=== PATIENT | female | born 1975 | race African-American/Black ===

== ENCOUNTER 2021-06-10 12:27 | Emergency (ER) | payer OTHER, SELFPAY ==
--- NOTE | ~2021-06-10 | US_ITS ---
US pelvic complete DATE: 06/10/2021 18:23 INDICATION: Dysfunctional uterine bleeding TECHNIQUE: Real-time imaging via transabdominal approach only COMPARISON: July 08, 2017 pelvic ultrasound with transvaginal views FINDINGS: The uterus measures 8.4 cm height, 5 cm AP and 6 cm transverse dimension. The central endom etrial echo measures 9 mm AP dimension. Right ovary 2.6 x 1.4 x 1.8 cm with vascular flow. Left ovary 4.1 x 2.4 x 3.3 cm with vascular flow. Left ovarian 2 x 2.7 cm cyst. No free pelvic fluid collection. IMPRESSION: 2 x 2.7 cm left ovarian cyst Reviewed, dictated and finalized at [facility] Reviewed, dictated and finalized at [facility] [employer]
[2021-06-10 12:45] VITALS: BP 129/88; PULSE 98; RESP 16; TEMP 37.2; O2SAT 100
[2021-06-10 15:01] VITALS: BP 115/74; PULSE 89; RESP 16; O2SAT 97
[2021-06-10 15:19] LABS: Basophils Percent Auto 0.4 % (0.2-1.2); Eosinophils Absolute Auto 0.1 K/mm3 (0-0.3); Eosinophils Percent Auto 1.9 % (0-4.4); Hematocrit 37.2 % (37.0-47.0); Hemoglobin 12.4 g/dL (12.0-15.0); Immature Granulocyte Absolute 0.02 K/mm3 (0.00-0.031); Immature Granulocyte Percent A 0.3 % (0-0.5); Lymphocytes Absolute Auto 2.58 K/mm3 (0.9-3.2); Lymphocytes Percent Auto 34.8 % (18.3-44.2); Mean Corpuscular HGB Conc 33.3 g/dl (32-36); Mean Corpuscular Hemoglobin 31.8 pg (26-34); Mean Corpuscular Volume 95.4 fl (80-100); Mean Platelet Volume 12.3 fl (7.4-10.4); Monocytes Absolute Auto 0.5 K/mm3 (0.1-0.6); Monocytes Percent Auto 6.7 % (2.6-8.5); Neutrophils Absolute Auto 4.2 K/mm3 (1.3-6.7); Neutrophils Percent Auto 55.9 % (45.5-73.1); Platelet Count Result 182 k/mm3 (150-375); Red Cell Distribution Width 14.4 % (11.5-14.5); White Blood Count 7.4 K/mm3 (4.5-10.0)
[2021-06-10 16:10] LABS: Add Urine Microscopic? YES; Appearance Urine Clear (Clear); Bilirubin Urine Negative (Negative); Blood Urine 3+ (Negative); Color Urine Yellow (Yellow); Glucose Urine UA Negative (Negative); Ketones Urine Negative (Negative); Leukocyte Esterase Ur Negative LEU/UL (Negative); Mucus Urine Rare /lpf; Nitrate Urine Negative (Negative); Protein Urine Negative (Negative); RBC Urine 0-2 /hpf (0-2); Specific Grav Ur 1.018 (1.001-1.035); Squamous Epithelial Cell Urine Moderate /hpf (Few); Urobilinogen Urine Negative mg/dL (<2.0); WBC Urine 0-3 /hpf
[2021-06-10] MEDS: KETOROLAC 30 MG/ML VIAL (*BKC) IV PUSH (16:40)
[2021-06-10] MEDS: SODIUM CHLORIDE 0.9% IV 1,000 ML 250 ML IV CONT (16:41)
[2021-06-10 18:57] VITALS: BP 107/76; PULSE 67; RESP 18; O2SAT 97
[2021-06-10 19:25] VITALS: PULSE 72; RESP 16; O2SAT 100
[2021-06-10 19:28] VITALS: BP 117/74
--- NOTE | 2021-06-10 19:44 | ED.FEMALEGU ---
HPI - Female Genitourinary General Chief complaint: Vaginal Bleeding Stated complaint: HEAVY VAG BLEED Time Seen by Provider: 06/10/21 16:17 Source: patient and family Mode of arrival: ambulatory Limitations: no limitations History of Present Illness HPI Narrative: 45-year-old otherwise healthy here with complaints of heavy vaginal bleeding since yesterday's. Patient states that she had soaked several pads since yesterday. However by the time she came to the ER her bleeding has much subsided. She also complains of being lightheaded and dizzy. She states that she never had this heavy bleeding in the past. She denies any fever or chills. Complains of pain in the right lower abdomen. MD elicited complaint: vaginal bleeding Severity: moderate Quality of pain: aching Consistency: constant Vaginal discharge: none Vaginal bleeding: heavy Exacerbating factors: none Related Data Allergies Allergy/AdvReac Type Severity Reaction Status Date / Time Iodinated Contrast Media Allergy Intermediate rash Verified 06/10/21 15:53 latex Allergy Unknown Unknown Verified 06/10/21 15:53 ranitidine Allergy Unknown Unknown Verified 06/10/21 15:53 onions AdvReac Intermediate generalized Uncoded 06/10/21 15:53 bloating/edema Review of Systems Review of Systems: All systems reviewed & are unremarkable except as noted in HPI and below Constitutional: Constitutional: Reports no additional constitutional complaints Eyes: Eyes: Reports no additional eye complaints ENT: Reports system reviewed and no additional complaints, except as documented Cardiovascular: Cardiovascular: Reports no additional cardiovascular complaints Respiratory: Respiratory: Reports no additional respiratory complaints Gastrointestinal: Gastrointestinal: Reports no additional gastrointestinal complaints Genitourinary: Genitourinary: Reports as per HPI Musculoskeletal: Musculoskeletal: Reports no additional musculoskeletal complaints Integumentary/Breasts: Skin/Breast: Reports system reviewed and no additional complaints, except as docu PMFSH Family History Family History Grandparent Hypertension Mother Hypertension Family history of malignant neoplasm of uterus Father Family history of malignant neoplasm Hypertension Malignant neoplasm of prostate Social History Social History Smoking status: Never smoker Second hand tobacco smoke exposure: No Alcohol intake: current Exam Narrative: GENERAL: Well-appearing, well-nourished, and in no acute distress. HEAD: Normocephalic, atraumatic. EYES: PERRLA and EOMI.. NECK: Supple. CHEST: Clear to auscultation. No respiratory distress. HEART: Regular rate and rhythm. No murmur heard. Normal peripheral pulses. ABDOMEN: Soft, nontender, nondistended, normal active bowel sounds. EXTREMITIES: Normal range of motion. No edema. SKIN: Warm, dry, no rash. NEURO: No focal deficits. Alert and oriented x3. PSYCH: Normal mood and affect. Course Course Emergency Course: Inform patient about her lab work, ultrasound findings. Patient states that her bleeding has much subsided. I discussed with Dr. Vanessa patient can be discharged home and followed up in the office. Patient requesting days off from work which I did give her for 2 days. Advised her to take ibuprofen for pain drink plenty of fluids as tolerated. Vital Signs Vital signs: Vital Signs Temperature 37.2 C 06/10/21 12:45 Pulse Rate 98 06/10/21 12:45 Respiratory Rate 16 06/10/21 12:45 Blood Pressure 129/88 06/10/21 12:45 Pulse Oximetry 100 06/10/21 12:45 Temperature 37.2 C 06/10/21 12:45 Pulse Rate 72 06/10/21 19:25 Respiratory Rate 16 06/10/21 19:25 Blood Pressure 117/74 06/10/21 19:28 Pulse Oximetry 100 06/10/21 19:25 MDM - Female Genitourinary MDM Narrative Medical decision making narrative: jamel DESHPANDE
== END 2021-06-10 20:02 | disposition home or self-care (01) ==
PROVIDERS: Emergency Medicine; Emergency Provider Family Medicine; PCP Family Medicine
DX: N93.8 Other specified abnormal uterine and vaginal bleeding (principal); N83.202 Unspecified ovarian cyst, left side
CPT/HCPCS: 36415; 76856; 81001; 85025; 96361; 96374; 99284; J1885; J7030

== ENCOUNTER 2023-11-26 10:55 | Outpatient (CLI) | payer OTHER, SELFPAY ==
--- NOTE | ~2023-11-26 | US_ITS ---
EXAMINATION: US pelvic complete w TV DATE: 11/26/2023 11:26 INDICATION: Ovarian cysts on outside imaging TECHNIQUE: Multiple transabdominal and endovaginal sonographic images of the pelvis were obtained. COMPARISON: 06/10/2021 FINDINGS: The uterus measures 9.6 x 5.6 x 6.1 cm. The endometrial complex measures 4 mm in thickness. There ap pears be asymmetric thickening of the anterior uterine fundus with heterogeneous echogenicity with st riated hypoechoic pattern emanating posteriorly and a few tiny anechoic cystic spaces which is sugges tive of adenomyosis. section scar along the anterior lower uterine segment. The right ovary measures 2.6 x 2.5 x 1.7 cm cm. 7 mm anechoic likely follicle at the right ovary. The left ovary kinsey ures 2.4 x 1.8 x 1.8 cm. There is normal vascular flow in the ovaries. There is no free fluid in the pelvis. IMPRESSION: 1. section scar along the anterior lower uterine segment and asymmetric thickening of the my ometrium at the anterior uterine body with appearance suggesting possible adenomyosis. 2. Normal bilateral ovaries with 7 mm anechoic likely right ovarian follicle. Reviewed, dictated and finalized at [facility] IMPRESSION: 1. section scar along the anterior lower uterine segment and asymmetri c thickening of the myometrium at the anterior uterine body with appearance sug gesting possible adenomyosis. 2. Normal bilateral ovaries with 7 mm anechoic likely right ovarian follicle.
== END 2023-11-26 10:56 ==
LOC: MICIMG 10:56
PROVIDERS: PCP Family Medicine; Visit Provider Nurse Practitioner Obstetrics & Gynecology
DX: N83.209 Unspecified ovarian cyst, unspecified side (principal)
CPT/HCPCS: 76830; 76856